=== PATIENT | male | born 2000 | race Caucasian/White ===

== ENCOUNTER 2024-06-16 11:58 | Emergency (ER) | payer OTHER, SELFPAY ==
[2024-06-16 12:01] VITALS: BP 121/73; PULSE 105; RESP 16; TEMP 37; O2SAT 96; BMI 19.9
--- NOTE | 2024-06-16 12:32 | ED_ITS ---
HPI - Fever <Cherrie Meek PA-C - Last Filed: 06/17/24 11:38> General Chief Complaint: Fever Stated Complaint: fever x 5 days Time Seen by Provider: 06/16/24 12:25 Source: patient Mode of arrival: Ambulatory History of Present Illness HPI Narrative: 24-year-old male with no reported past medical history presents to the ED with 1 week of fever and cough. Patient states that he has had some URI symptoms including fever, chills, cough, runny nose. Patient states that he feels that his breathing is shallow. Endorses 1 episode of nausea and vomiting. Denies chest pain, abdominal pain, diarrhea, lightheadedness, dizziness, syncope. Related Data Home Medications Medication Instructions Recorded Confirmed [id number] 250 1 tab PO ##0 04/04/17 mg-250 mg-65 mg tablet (Excedrin Migraine) Previous Rx's Medication Instructions Recorded amoxicillin 400 mg-potassium 35 ml PO BID #700 mL 05/10/17 clavulanate 57 mg/5 mL oral suspension azithromycin 250 mg tablet See Rx Instructions PO .COMPLEX #6 06/16/24 (Zithromax Z-Regino) tabs benzonatate 200 mg capsule 200 mg PO TID PRN cough #30 caps 06/16/24 Allergies Allergy/AdvReac Type Severity Reaction Status Date / Time No Known Drug Allergies Allergy Verified 06/16/24 12:05 Review of Systems <Cherrie Meek PA-C - Last Filed: 06/17/24 11:38> Constitutional Constitutional: Reports chills, Denies fatigue, Reports fever(s), Denies frequent falls, Denies lethargy and Denies weakness Eyes Eyes: Denies change in vision, Denies eye discharge, Denies irritation and Denies loss of vision ENT Ears, Nose, Mouth, and Throat: Denies change in voice, Denies dizziness, Denies neck pain, Denies sore throat and Denies throat swelling Cardiovascular Cardiovascular: Denies chest pain, Denies irregular heart rhythm, Denies lightheadedness, Denies palpitations, Reports dyspnea, Denies dyspnea on exertion and Denies orthopnea Respiratory Respiratory: Reports cough, Reports dyspnea, Denies dyspnea on exertion and Denies wheezing Gastrointestinal Gastrointestinal: Denies abdominal pain, Denies change in bowel habits, Denies diarrhea, Reports nausea and Reports vomiting Musculoskeletal Musculoskeletal: Denies neck pain and Denies numbness Integumentary/Breasts Skin/Breast: Denies pruritus, Denies erythema, Denies rash and Denies wounds Neurologic Neurologic: Denies behavioral changes, Denies confusion, Denies dizziness, Denies frequent falls, Denies loss of vision, Denies numbness and Denies weakness Psychiatric Psychiatric: Denies anxiety, Denies behavioral changes, Denies confusion, Denies depression, Denies homicidal ideation and Denies suicidal ideation Endocrine Endocrine: Denies fatigue, Denies flushing and Denies palpitations Hematologic/Lymphatic Hematologic/Lymphatic: Denies easy bruising Allergic/Immunologic Allergic/Immunologic: Denies urticaria, Denies throat swelling and Denies wheezing Patient History <Cherrie Meek PA-C - Last Filed: 06/17/24 11:38> Family History Mother Thalassemia minor Social History Smoking Status: Current some day smoker Smoking Status: Current some day smoker tobacco type: cigarettes Exam <Cherrie Meek PA-C - Last Filed: 06/17/24 11:38> Narrative Exam Narrative: Const General:?cooperative, healthy appearing and comfortable [facility] Head:?normal to inspection Ears:?hearing grossly normal bilaterally Nose:?external nose normal Face and sinus:?normal facial exam and sinuses nontender Mouth:?oral mucosae normal Throat:?posterior oropharynx normal Eyes General:?appearance normal, both eyes and all related structures Neck Neck:?normal visual inspection and no lymphadenopathy noted Resp Effort & Inspection:?normal respiratory effort Auscultation:? Bilateral coarse crackles Cardio Rate:?regular rate Rhythm:?regular rhythm Neuro General:?patient alert, patient awake and patient oriented x3 Initial Vital Signs Initial Vital Signs: Vital Signs Temperature 98.6 F 06/16/24 12:01 Pulse Rate 105 H 06/16/24 12:01 Respiratory Rate 16 06/16/24 12:01 Blood Pressure 121/73 06/16/24 12:01 Pulse Oximetry 96 06/16/24 12:01 Oxygen Delivery Method Room Air 06/16/24 12:01 <Watson Thomas DO - Last Filed: 06/18/24 07:02> Initial Vital Signs Initial Vital Signs: Vital Signs Temperature 98.6 F 06/16/24 12:01 Pulse Rate 105 H 06/16/24 12:01 Respiratory Rate 16 06/16/24 12:01 Blood Pressure 121/73 06/16/24 12:01 Pulse Oximetry 96 06/16/24 12:01 Oxygen Delivery Method Room Air 06/16/24 12:01 Course <Cherrie Meek PA-C - Last Filed: 06/17/24 11:38> Orders Ordered: Discontinued Medications Benzonatate (Benzonatate 100 Mg Capsule) 200 mg PO NOW ONE Stop: 06/16/24 14:24 Last Admin: 06/16/24 14:32 Dose: 200 mg Documented By: RB Vital Signs Vital signs: Vital Signs - 8 hr 06/16/24 12:01 06/16/24 15:19 Temperature 98.6 F 98.4 F Pulse Rate 105 H 85 Respiratory Rate 16 16 Blood Pressure 121/73 122/67 Pulse Oximetry 96 99 Oxygen Delivery Method Room Air Room Air <Watson Thomas DO - Last Filed: 06/18/24 07:02> Orders Ordered: Discontinued Medications Benzonatate (Benzonatate 100 Mg Capsule) 200 mg PO NOW ONE Stop: 06/16/24 14:24 Last Admin: 06/16/24 14:32 Dose: 200 mg Documented By: RB Vital Signs Vital signs: Vital Signs - 8 hr 06/16/24 12:01 06/16/24 15:19 Temperature 98.6 F 98.4 F Pulse Rate 105 H 85 Respiratory Rate 16 16 Blood Pressure 121/73 122/67 Pulse Oximetry 96 99 Oxygen Delivery Method Room Air Room Air MDM - Fever <Cherrie Meek PA-C - Last Filed: 06/17/24 11:38> Lab Data Labs: Lab Results 06/16/24 06/16/24 06/16/24 Range/Units 12:06 12:06 12:06 Chlamy pneumoniae PCR Not detected (Not Detect) Adenovirus (PCR) Not detected (Not Detect) B. pertussis DNA (PCR) Not detected (Not Detect) B.parapertussis DNA PCR Not detected (Not Detecte) Coronavirus OC43 (PCR) Not detected (Not Detect) Coronavirus HKU1 (PCR) Not detected (Not Detect) Coronavirus 229E (PCR) Not detected (Not Detect) SARS-CoV-2 (PCR) Negative Not detected (Negative) Coronavirus NL63 (PCR) Not detected (Not Detect) Human Metapneumovir PCR Not detected (Not Detect) Influenza A (RT-PCR) Flu a negative (NEGATIVE) Influenza Type A (PCR) Not detected (Not Detect) Influenza B (RT-PCR) Flu b negative (NEGATIVE) Influenza Type B (PCR) Not detected (Not Detect) M. pneumoniae (PCR) Detected H (Not Detect) Parainfluenza 1 (PCR) Not detected (Not Detect) Parainfluenza 2 (PCR) Not detected (Not Detect) Parainfluenza 3 (PCR) Not detected (Not Detect) Parainfluenza 4 (PCR) Not detected (Not Detect) RSV (PCR) Negative Not detected (Negative) Entero/Rhino (PCR) Not detected (Not Detect) MDM Narrative Medical decision making narrative: 24-year-old male with no reported past medical history presents to the ED with 1 week of fever and cough. Concern for viral URI versus pneumonia versus other. Respiratory panel positive for mycoplasma pneumonia. Chest x-ray was obtained which shows extensive left-sided pneumonia and focal pneumonia in the right upper lobe. No pleural effusions or pneumothorax. Discussed findings with patient. Prescribed antibiotics, Kun Dunlap. Recommend follow-up with PCP as soon as possible. ED return precautions discussed with patient. Patient verbalized understanding. Medical records reviewed: Yes <Watson Thomas DO - Last Filed: 06/18/24 07:02> Lab Data Labs: Lab Results 06/16/24 06/16/24 06/16/24 Range/Units 12:06 12:06 12:06 Chlamy pneumoniae PCR Not detected (Not Detect) Adenovirus (PCR) Not detected (Not Detect) B. pertussis DNA (PCR) Not detected (Not Detect) B.parapertussis DNA PCR Not detected (Not Detecte) Coronavirus OC43 (PCR) Not detected (Not Detect) Coronavirus HKU1 (PCR) Not detected (Not Detect) Coronavirus 229E (PCR) Not detected (Not Detect) SARS-CoV-2 (PCR) Negative Not detected (Negative) Coronavirus NL63 (PCR) Not detected (Not Detect) Human Metapneumovir PCR Not detected (Not Detect) Influenza A (RT-PCR) Flu a negative (NEGATIVE) Influenza Type A (PCR) Not detected (Not Detect) Influenza B (RT-PCR) Flu b negative (NEGATIVE) Influenza Type B (PCR) Not detected (Not Detect) M. pneumoniae (PCR) Detected H (Not Detect) Parainfluenza 1 (PCR) Not detected (Not Detect) Parainfluenza 2 (PCR) Not detected (Not Detect) Parainfluenza 3 (PCR) Not detected (Not Detect) Parainfluenza 4 (PCR) Not detected (Not Detect) RSV (PCR) Negative Not detected (Negative) Entero/Rhino (PCR) Not detected (Not Detect) Discharge Plan Departure Patient Disposition: Home Clinical Impression: Pneumonia Qualifiers: Pneumonia type: due to Mycoplasma pneumoniae Laterality: bilateral Lung location: unspecified part of lung Qualified Code(s): J15.7 - Pneumonia due to Mycoplasma pneumoniae Instructions: Pneumonia-Adult Activity Restrictions/Additional Instructions: You were evaluated in the ED today for fever and a cough. Your chest x-ray shows pneumonia in both lungs. Your respiratory swab was positive for mycoplasma pneumoniae, which is causing the pneumonia. You are being prescribed antibiotics and cough medicine. Please take those as prescribed. Return to the ED if you have worsening symptoms, chest pain, shortness of breath. Prescriptions: New azithromycin [Zithromax Z-Regino] 250 mg tablet See Rx Instructions .ROUTE .COMPLEX Qty: 6 0RF Rx Instructions: For 250 mg dose pack: take 500 mg today (day 1), then 250 mg for 4 days (days 2-5) benzonatate 200 mg capsule 200 mg PO TID PRN (Reason: cough) Qty: 30 0RF No Action [id number]-[id number] [Excedrin Migraine] 1 EACH tablet 1 tab PO Qty: 0 amoxicillin-pot clavulanate 400 MG/5 ML suspension for reconstitution 35 ml PO BID Qty: 700 0RF Referrals: Miscellaneous,Doctor, MD [Primary Care Provider] - Stand Alone Forms: Patient Portal/API/Survey ED Sign-out <Watson Thomas DO - Last Filed: 06/18/24 07:02> Cosign ED Attending Cosignature Attestation: Dr Thomas Co-Sign Statement: I was available for consultation during this patient's emergency department visit. This chart is signed by myself for administrative purposes only. I did not have direct contact with this patient during this visit. They were seen independently by the APC.
[2024-06-16 13:08] LABS: Influenza A - CEPHEID Flu A NEGATIVE (NEGATIVE); Influenza B - CEPHEID Flu B NEGATIVE (NEGATIVE); Respiratory Syncytial Virus Negative (Negative)
[2024-06-16 13:24] LABS: COVID-19 CEPHEID 4-PLEX PCR Negative (Negative)
--- NOTE | 2024-06-16 13:35 | DI.RAD.S_ITS ---
PROCEDURE: XR CHEST 2V INDICATIONS: fever TECHNIQUE: 2 views of the chest were acquired. COMPARISON: None. FINDINGS: Surgical changes and devices: None. Lungs and pleura: Extensive left-sided pneumonia and focal pneumonia in the right upper lobe. No pleural effusions or pneumothorax. Mediastinum: Mediastinal contours are normal. Heart size is normal. Bones and chest wall: No suspicious bony abnormalities. Soft tissues appear unremarkable. IMPRESSION: Bilateral pneumonia, left greater than right. Comment: Progress films are recommended until clear. Dictated by: Davis Aggarwal M.D. on 06/16/2024 at 14:14 Approved by: Davis Aggarwal M.D. on 06/16/2024 at 14:16
[2024-06-16 14:30] LABS: Adenovirus Not Detected (Not Detect); B. parapertussis Not Detected (Not Detecte); Bordetella pertussis Not Detected (Not Detect); Chlamydophila pneumoniae Not Detected (Not Detect); Coronavirus 229E Not Detected (Not Detect); Coronavirus HKU1 Not Detected (Not Detect); Coronavirus NL 63 Not Detected (Not Detect); Coronavirus OC43 Not Detected (Not Detect); Human Metapneumovirus Not Detected (Not Detect); Human Rhinovirus/Enterovirus Not Detected (Not Detect); Influenza A Not Detected (Not Detect); Influenza B Not Detected (Not Detect); Mycoplasma pneumoniae Detected (Not Detect); Parainfluenza Virus 1 Not Detected (Not Detect); Parainfluenza Virus 2 Not Detected (Not Detect); Parainfluenza Virus 3 Not Detected (Not Detect); Parainfluenza Virus 4 Not Detected (Not Detect); Respiratory Syncytial Virus Not Detected (Not Detect); SARS- CoV-2 Not Detected (Not Detecte)
[2024-06-16] MEDS: BENZONATATE 100 MG CAPSULE 200 MG PO (14:32)
[2024-06-16 15:19] VITALS: BP 122/67; PULSE 85; RESP 16; TEMP 36.9; O2SAT 99
== END 2024-06-16 15:19 | disposition home or self-care (01) ==
PROVIDERS: Emergency Provider Student in an Organized Health Care Education/Training Program
DX: J15.7 Pneumonia due to Mycoplasma pneumoniae (principal); R05.9 Cough, unspecified; R11.2 Nausea with vomiting, unspecified
CPT/HCPCS: 0241U; 71046; 87633; 99283